=== PATIENT | female | born 1985 | race Caucasian/White ===

== ENCOUNTER 2016-12-23 07:41 | Emergency (ER) | payer BC ==
[2016-12-23 08:23] LABS: APPEARANCE,URINE CLEAR; BILIRUBIN,URINE NEGATIVE (NEGATIVE); GLUCOSE, URINE NEGATIVE (NEGATIVE); KETONES,URINE NEGATIVE (NEGATIVE); LEUKOCYTE ESTERASE,URINE NEGATIVE (NEGATIVE); NITRITE,URINE NEGATIVE (NEGATIVE); PROTEIN,URINE NEGATIVE (NEGATIVE); URINE SPECIFIC GRAVITY 1.002; UROBILINOGEN,URINE NEGATIVE mg/dL (<2.0)
[2016-12-23 09:04] LABS: ABSOLUTE EOSINOPHILS # (AUTO) 0.2 10^3/uL (0.0-0.6); ABSOLUTE LYMPHOCYTES (AUTO) 1.7 10^3/uL (0.5-4.7); ABSOLUTE MONOCYTES (AUTO) 0.3 10^3/uL (0.1-1.4); ABSOLUTE NEUT (AUTO) 3.5 10^3/uL (1.7-8.2); BASOPHILS % (AUTO) 0.6 % (0-2); EOSINOPHILS % (AUTO) 4.1 % (0-6); HEMATOCRIT 40.1 % (36.0-47.0); HGB HCT DIFFERENCE 1.9; LYMPHOCYTES % (AUTO) 29.2 % (13-45); MEAN CORPUSCULAR HEMOGLOBIN 30.8 pg (27.0-33.4); MEAN CORPUSCULAR HGB CONC 34.8 g/dL (32.0-36.0); MEAN CORPUSCULAR VOLUME 89 fl (80-97); MONOCYTES % (AUTO) 5.8 % (3-13); RED BLOOD COUNT 4.54 10^6/uL (3.72-5.28); RED CELL DISTRIBUTION WIDTH 12.9 % (11.5-14.0); SEGMENTED NEUTROPHILS % (AUTO) 60.3 % (42-78); WHITE BLOOD COUNT 5.8 10^3/uL (4.0-10.5)
[2016-12-23 09:25] LABS: ALANINE AMINOTRANSFERASE 30 U/L (9-52); ALBUMIN 4.5 g/dL (3.5-5.0); ALKALINE PHOSPHATASE 66 U/L (38-126); ANION GAP 14 (5-19); ASPARTATE AMINO TRANSFERASE 16 U/L (14-36); BILIRUBIN,DIRECT 0.3 mg/dL (0.0-0.4); BILIRUBIN,TOTAL 0.4 mg/dL (0.2-1.3); BLOOD UREA NITROGEN 9 mg/dL (7-20); CALCIUM 9.6 mg/dL (8.4-10.2); CARBON DIOXIDE 22 mmol/L (22-30); CHLORIDE 106 mmol/L (98-107); CREATINE KINASE 59 U/L (30-135); CREATININE RESULT 0.72 mg/dL (0.52-1.25); GLUCOSE 82 mg/dL (75-110); POTASSIUM 5.3 mmol/L (3.6-5.0); TOTAL PROTEIN 7.4 g/dL (6.3-8.2)
[2016-12-23] MEDS ORDERED: KETOROLAC TROMETHAMINE INJ/PF 30 MG/1 ML SDV IV ONE (10:28)
--- NOTE | 2016-12-23 10:33 | ER Document Report ---
ED General - General Chief Complaint: Urinary Frequency Stated Complaint: BILATERAL LEG PAIN Time Seen by Provider: 12/23/16 08:02 TRAVEL OUTSIDE OF THE [place] IN LAST 30 DAYS: No - HPI Notes: 31-year-old female presents with back and leg pain as well as dysuria. She was seen 5 days ago placed on Cipro for urinary type symptoms. She still has some sensation of these are present but is now having diffuse lumbar pain radiating diffusely through all of her legs. There is no focal weakness numbness or tingling. No incontinence or retention. No leg weakness. Denies abdominal pain. No fever. Denies trauma. Pain worse with movement. Denies history of diabetes, IV drug abuse, cancer. - Related Data Allergies/Adverse Reactions: No Known Allergies Allergy (Verified 12/23/16 07:45) Past Medical History - Social History Smoking Status: Never Smoker Chew tobacco use (# tins/day): No Frequency of alcohol use: Occasional Drug Abuse: None Family History: DM, Hyperlipidemia, Hypertension, Thyroid Disfunction Patient has suicidal ideation: No Patient has homicidal ideation: No - Past Medical History Cardiac Medical History: Pulmonary Medical History: Reports: Hx Asthma Neurological Medical History: Renal/ Medical History: Denies: Hx Peritoneal Dialysis GI Medical History: Musculoskeltal Medical History: Infectious Medical History: Past Surgical History: Reports: Hx Adenoidectomy, Hx Section, Hx Oral Surgery, Hx Tonsillectomy, Hx Tubal Ligation - Immunizations Immunizations up to date: Yes Hx Diphtheria, Pertussis, Tetanus Vaccination: Yes Review of Systems - Review of Systems -: Yes All other systems reviewed and negative Physical Exam - Vital signs Vitals: Temp Pulse Resp BP Pulse Ox 98.3 F 89 18 123/86 H 100 12/23/16 07:45 12/23/16 07:45 12/23/16 07:45 12/23/16 07:45 12/23/16 07:45 - Notes Notes: GENERAL: VS as per nursing doc. Well-appearing, well-nourished and in no acute distress. HEAD: Atraumatic, normocephalic. EYES: Pupils equal round and reactive to light, extraocular movements intact, sclera anicteric, no conjunctival injection or discharge. ENT: Nares patent, oropharynx clear without exudates, moist mucous membranes. NECK: Normal range of motion, supple without lymphadenopathy. LUNGS: Breath sounds clear to auscultation bilaterally and equal. No wheezes rales or rhonchi. HEART: Regular rate and rhythm without murmurs. ABDOMEN: Soft, non-tender, normoactive bowel sounds. No guarding, no rebound. No masses appreciated. No [place] sign. BACK: No CVA tenderness. EXTREMITIES: Normal range of motion, no calf tenderness, no edema. NEUROLOGICAL: Cranial nerves grossly intact. Normal speech. 5/5 lower extremity strength. Normal sensation. No saddle anesthesia. 1+ patellar deep tendon reflexes. Babinski downgoing PSYCH: Normal mood, normal affect. SKIN: Warm, dry, normal turgor, no lesions noted. Course - Re-evaluation Re-evalutation: 12/23/16 10:51 Patient is improved overall. This seems to be largely musculoskeletal. We will stop the Cipro after a discussion with potential side effects of this. We will await the urine culture which will likely be negative. She is not having any vaginal discharge. She has no signs of cauda equina at this time. She understands close follow-up and has a follow-up with urology scheduled but not till next month. As well, she understands warning signs and will return for any incontinence, retention or other worrisome signs. - Vital Signs Vital signs: Temp Pulse Resp BP Pulse Ox 98.4 F 85 16 121/79 98 12/23/16 10:39 12/23/16 10:39 12/23/16 07:45 12/23/16 10:39 12/23/16 10:39 - Laboratory Result Diagrams: 12/23/16 08:50 12/23/16 08:50 Laboratory results interpreted by me: 12/23/16 08:50 Potassium 5.3 H Discharge - Discharge Clinical Impression: Back pain, Dysuria Condition: Good Disposition: HOME, SELF-CARE Additional Instructions: Return for worsening or concern. Push non-caffeinated fluids. Start initially with ibuprofen or Aleve for discomfort. Prescriptions: Hydrocodone/Acetaminophen [[place] 5-325 mg Tablet] 1 tab PO Q4HP PRN #14 tablet PRN Reason: For Pain Phenazopyridine HCl [Pyridium 200 mg Tablet] 200 mg PO TID PRN #7 tablet PRN Reason:
[2016-12-23 10:42] VITALS: BP 121/79
== END 2016-12-23 10:42 | disposition home or self-care (01) ==
LOC: ER 07:41
DX: M54.9 Dorsalgia, unspecified (principal); R30.0 Dysuria; Z98.51 Tubal ligation status
CPT/HCPCS: 99283; 96374; 36415; 87086; 82550; 85025; 81025; 80053; 81001; J1885

== ENCOUNTER 2017-01-22 09:40 | Emergency (ER) | payer BC ==
[2017-01-22] MEDS ORDERED: NORMAL SALINE 1000 ML 1,000 ML IV ONE (10:15)
--- NOTE | 2017-01-22 10:16 | ER Document Report ---
ED General - General Chief Complaint: Urinary Problem Stated Complaint: PAINFUL URINATION Time Seen by Provider: 01/22/17 10:03 Notes: Patient is a 31-year-old female presents emergency department complaining of urinary tract infection. Patient states that she is a complicated UTI history over the past 9 months that she states she has been getting diagnosed with a UTI every 3-4 weeks. She states that she was initiated on Bactrim yesterday at her doctor's office but she woke up this morning with flank pain feels like her skin is hot since she started the Bactrim. She states she taken Bactrim once before and denies any previous allergic reaction. She states she is due to follow-up with the urologist for an ultrasound on Thursday regarding her recurrent UTIs. Otherwise denies any nausea, vomiting, diarrhea, constipation, abdominal pain. States she does not have any evidence of pyuria, hematuria, urinary retention. TRAVEL OUTSIDE OF THE [place] IN LAST 30 DAYS: No - Related Data Allergies/Adverse Reactions: hydromorphone [From Dilaudid] Allergy (Verified 01/22/17 09:53) Home Medications: Current Home Medications Cetirizine HCl [All Day Allergy] 10 mg PO DAILY 01/22/17 [History] Past Medical History - Social History Smoking Status: Current Every Day Smoker Family History: DM, Hyperlipidemia, Hypertension, Thyroid Disfunction - Past Medical History Cardiac Medical History: Pulmonary Medical History: Reports: Hx Asthma Neurological Medical History: Renal/ Medical History: Denies: Hx Peritoneal Dialysis GI Medical History: Musculoskeltal Medical History: Infectious Medical History: Past Surgical History: Reports: Hx Adenoidectomy, Hx Section, Hx Oral Surgery, Hx Tonsillectomy, Hx Tubal Ligation - Immunizations Immunizations up to date: Yes Hx Diphtheria, Pertussis, Tetanus Vaccination: Yes Review of Systems - Review of Systems Constitutional: No symptoms reported Gastrointestinal: See HPI Genitourinary: See HPI -: Yes All other systems reviewed and negative Physical Exam - Vital signs Vitals: Temp Pulse Resp BP Pulse Ox 98.5 F 105 H 18 127/85 H 95 01/22/17 09:52 01/22/17 09:52 01/22/17 09:52 01/22/17 09:52 01/22/17 09:52 - Notes Notes: PHYSICAL EXAM GENERAL: Alert, interacts well. HEAD: Normocephalic, atraumatic. LUNGS: Clear to auscultation bilaterally, no wheezes, rales, or rhonchi. No respiratory distress. HEART: Regular rate and rhythm. No murmurs, gallops, or rubs. ABDOMEN: Soft, nondistended, nontender. No guarding, rebound, or rigidity.. Bowel sounds present in all 4 quadrants. EXTREMITIES: Moves all 4 extremities spontaneously. No edema, radial and dorsalis pedis pulses 2/4 bilaterally. No cyanosis. Back: No evidence of CVA tenderness bilaterally. No evidence of spinous process apparent muscular tenderness. Patient able to walk without any difficulty. Gait stable NEUROLOGICAL: Alert and oriented x4. Normal speech. PSYCH: Normal affect, normal mood. SKIN: Warm, dry, normal turgor. No rashes or lesions noted. Course - Re-evaluation Re-evalutation: 01/22/17 12:12 patient is a 31-year-old female who is hemodynamically stable, no acute distress and afebrile.Vital signs stable without any evidence of tachycardia, hypotension, fever. CBC without evidence of leukocytosis or left shift. No evidence of acute renal failure on chemistry or evidence of electrolyte abnormalities. Urine with evidence of leuk esterase, white blood cells and mild hematuria. At this time patient is not concerning for acute pyelonephritis. Will continue patient's treatment with p.o. antibiotics but will switch her to Levaquin given patient states she feels like she is having allergic reaction on the Bactrim. Discussed with her to follow-up with urology as scheduled. - Vital Signs Vital signs: Temp Pulse Resp BP Pulse Ox 98.0 F 97 18 127/80 H 99 01/22/17 12:24 01/22/17 12:24 01/22/17 12:24 01/22/17 12:24 01/22/17 12:24 - Laboratory Result Diagrams: 01/22/17 10:35 01/22/17 10:35 Laboratory results interpreted by me: 01/22/17 01/22/17 09:54 10:35 Seg Neutrophils % 79.3 H Lymphocytes % 11.6 L Ur Leukocyte Esterase MODERATE H Urine Ascorbic Acid 40 H Discharge - Discharge Clinical Impression: UTI (urinary tract infection) Condition: Good Disposition: HOME, SELF-CARE Additional Instructions: URINARY TRACT INFECTION: Your evaluation indicates that you have a urinary tract infection. This is due to germs growing in the bladder. This is a common problem. This infection usually responds quickly to antibiotics. Your antibiotic should be taken exactly as prescribed. Drink plenty of fluids -- three to four quarts a day. Occasionally, a bladder anesthetic will be prescribed to help stop the feeling of urgency until the antibiotic has a chance to clear the infection. This may cause your urine to be dark orange. Certain urine infections require a culture. If the doctor obtained a culture, the results will be back in two days. You should call to see if a change in treatment is needed. A repeat urinalysis after you finish treatment is often recommended. The physician will let you know if further testing is required. Call the doctor if you develop fever, chills, flank pain, inability to urinate, or blood in the urine. ANTIBIOTIC THERAPY: You have been given an antibiotic prescription. It's important that you take all the medication, unless instructed otherwise by your physician. Failure to complete the entire course can result in relapse of your condition. Common side effects of antibiotics include nausea, intestinal cramping, or diarrhea. Women may develop vaginal yeast infections, and babies can get yeast (thrush) in the mouth following the use of antibiotics. Contact your physician if you develop significant side effects from this medication. Allergy to this antibiotic can result in hives, wheezing, faintness, or itching. If symptoms of allergy occur, stop the medication and call the doctor. LEVOFLOXACIN: You have been given an antibacterial agent, levofloxacin (Levaquin). This medicine is not related to the penicillins, sulfas, cephalosporins, or tetracyclines. It is often given to patients who are allergic to these drugs. It has been chosen for you either because other drugs are not appropriate, or because of the nature of your problem. Levaquin should not be taken with antacids, as these can decrease its effectiveness. It can be taken without regard to meals. LEVAQUIN SHOULD NOT BE TAKEN BY CHILDREN, NURSING WOMEN, OR WOMEN. Although Levaquin is usually well-tolerated, common side effects can include nausea and diarrhea. Contact your doctor if you experience any unusual symptoms while on this medication, such as joint pain or swelling, shortness of breath, wheezing, faintness, or hives. FOLLOW-UP CARE: If you have been referred to a physician for follow-up care, call the physician s office for an appointment as you were instructed or within the next two days. If you experience worsening or a significant change in your symptoms, notify the physician immediately or return to the Emergency Department at any time for re-evaluation. Prescriptions: Levofloxacin 750 mg PO DAILY #5 tablet Oxycodone HCl/Acetaminophen [Percocet 5-325 mg Tablet] 1 - 2 tab PO Q4H PRN #10 tablet PRN Reason: Forms: Return to Work Referrals: ANAT KASPER II, MD [CAPRI JIMENEZ] - Follow up as needed
[2017-01-22 10:51] LABS: ABSOLUTE EOSINOPHILS # (AUTO) 0.3 10^3/uL (0.0-0.6); ABSOLUTE LYMPHOCYTES (AUTO) 0.8 10^3/uL (0.5-4.7); ABSOLUTE MONOCYTES (AUTO) 0.3 10^3/uL (0.1-1.4); ABSOLUTE NEUT (AUTO) 5.2 10^3/uL (1.7-8.2); BASOPHILS % (AUTO) 0.4 % (0-2); EOSINOPHILS % (AUTO) 4.2 % (0-6); HEMATOCRIT 40.2 % (36.0-47.0); HGB HCT DIFFERENCE 1.8; LYMPHOCYTES % (AUTO) 11.6 % (13-45); MEAN CORPUSCULAR HEMOGLOBIN 30.1 pg (27.0-33.4); MEAN CORPUSCULAR HGB CONC 34.8 g/dL (32.0-36.0); MEAN CORPUSCULAR VOLUME 87 fl (80-97); MONOCYTES % (AUTO) 4.5 % (3-13); RED BLOOD COUNT 4.64 10^6/uL (3.72-5.28); SEGMENTED NEUTROPHILS % (AUTO) 79.3 % (42-78); WHITE BLOOD COUNT 6.5 10^3/uL (4.0-10.5)
[2017-01-22 11:02] LABS: APPEARANCE,URINE SLIGHTLY-CLOUDY; BILIRUBIN,URINE NEGATIVE (NEGATIVE); GLUCOSE, URINE NEGATIVE (NEGATIVE); KETONES,URINE NEGATIVE (NEGATIVE); LEUKOCYTE ESTERASE,URINE MODERATE (NEGATIVE); NITRITE,URINE NEGATIVE (NEGATIVE); PROTEIN,URINE NEGATIVE (NEGATIVE); URINE SPECIFIC GRAVITY 1.024; UROBILINOGEN,URINE NEGATIVE mg/dL (<2.0)
[2017-01-22 11:46] LABS: ANION GAP 13 (5-19); BLOOD UREA NITROGEN 12 mg/dL (7-20); CALCIUM 9.6 mg/dL (8.4-10.2); CARBON DIOXIDE 26 mmol/L (22-30); CHLORIDE 103 mmol/L (98-107); CREATININE RESULT 0.93 mg/dL (0.52-1.25); GLUCOSE 90 mg/dL (75-110); POTASSIUM 4.2 mmol/L (3.6-5.0)
[2017-01-22] MEDS ORDERED: LEVOFLOXACIN 750 MG TABLET PO ONE (12:11)
[2017-01-22 12:33] VITALS: BP 127/80
== END 2017-01-22 12:33 | disposition home or self-care (01) ==
LOC: ER 09:40
DX: N39.0 Urinary tract infection, site not specified (principal); F17.200 Nicotine dependence, unspecified, uncomplicated; Z87.440 Personal history of urinary (tract) infections; Z98.51 Tubal ligation status
CPT/HCPCS: 99283; 96360; 36415; 87086; 85025; 81025; 80048; 81001; J7030

== ENCOUNTER → 2017-02-16 | Outpatient (CLI) | payer BC, MEDICAID ==
--- NOTE | 2017-02-16 14:00 | RADIOLOGY REPORT (SQ) ---
EXAM DESCRIPTION: CT ABD/PELVIS COMBO COMPLETED DATE/TIME: 02/16/2017 12:52 pm REASON FOR STUDY: (R10.9) UNSPECIFIED ABDOMINAL PAIN (R31.29) OTHER MICROSCOPIC HEMATURIA FLA R10.9 UNSPECIFIED ABDOMINAL PAIN R31.29 OTHER MICROSCOPIC HEMATURIA COMPARISON: None. TECHNIQUE: CT scan of the abdomen and pelvis performed with and without intravenous contrast, and wi thout oral contrast. Contrasted imaging performed helical scanning technique and dynamic intravenous contrast injection. Images reviewed with lung, soft tissue, and bone windows. Reconstructed coronal a nd sagittal MPR images reviewed. Delayed images for evaluation of the urinary system also acquired. A ll images stored on PACS. All CT scanners at this facility use dose modulation, iterative reconstruction, and/or weight based d osing when appropriate to reduce radiation dose to as low as reasonably achievable (ALARA). [facility]: Dose Right [facility]: CareDose [facility]: Dose Right [facility]: Teradose 4D [facility]: Big Live CONTRAST TYPE AND DOSE: contrast/concentration: Isovue 370.00 mg/ml; Total Contrast Delivered: 95.0 ml; Total Saline Delivered: 71.1 ml RENAL FUNCTION: BUN 12 creatinine 0.9 RADIATION DOSE: Up-to-date CT equipment and radiation dose reduction techniques were employed. CTDIv ol: 14.0 - 15.9 mGy. DLP: 2254 mGy-cm. . LIMITATIONS: None. FINDINGS: NON-CONTRASTED IMAGIN mm stone lower pole right kidney. Bilateral nephrocalcinosis. POST-CONTRASTED IMAGING: LOWER CHEST: No significant findings. No nodules or infiltrates. LIVER: Normal size. No masses. No dilated ducts. SPLEEN: Normal size. No focal lesions. PANCREAS: No masses. No significant calcifications. No adjacent inflammation or peripancreatic fluid collections. Pancreatic duct not dilated. GALLBLADDER: No identified stones by CT criteria. No inflammatory changes to suggest cholecystitis. ADRENAL GLANDS: No significant masses or asymmetry. RIGHT KIDNEY AND URETER: No solid masses. No hydronephrosis or hydroureter. LEFT KIDNEY AND URETER: No solid masses. No hydronephrosis or hydroureter. AORTA AND VESSELS: No aneurysm. No dissection. Renal arteries, SMA, celiac without stenosis. RETROPERITONEUM: No retroperitoneal adenopathy, hemorrhage or masses. BOWEL AND PERITONEAL CAVITY: No masses or inflammatory changes. No free fluid or peritoneal masses. APPENDIX: Normal. PELVIS: No mass. No free fluid. Normal bladder. ABDOMINAL WALL: No masses. No hernias. BONES: No significant or acute findings. OTHER: No other significant finding. IMPRESSION: Medullary nephrocalcinosis. 4 mm nonobstructing stone right kidney. TECHNICAL DOCUMENTATION: JOB ID: [id number] Quality ID # [id number]: Final reports with documentation of one or more dose reduction techniques (e.g., Au tomated exposure control, adjustment of the mA and/or kV according to patient size, use of iterative reconstruction technique) 2010 [employer]- All Rights Reserved
== END ==
LOC: RAD 12:08
PROVIDERS: ATTEND Urology
DX: R31.29 Other microscopic hematuria (principal); R10.9 Unspecified abdominal pain
CPT/HCPCS: 74178

== ENCOUNTER → 2017-04-20 | Outpatient (CLI) | payer BC ==
[2017-04-20 12:27] LABS: HEMATOCRIT 41.4 % (36.0-47.0); HEMOGLOBIN 14.5 g/dL (12.0-15.5); MEAN CORPUSCULAR HEMOGLOBIN 30.3 pg (27.0-33.4); MEAN CORPUSCULAR VOLUME 87 fl (80-97); PLATELET COUNT 250 10^3/uL (150-450); RED BLOOD COUNT 4.78 10^6/uL (3.72-5.28); RED CELL DISTRIBUTION WIDTH 12.9 % (11.5-14.0); WHITE BLOOD COUNT 7.8 10^3/uL (4.0-10.5)
[2017-04-20 12:33] LABS: APPEARANCE,URINE CLEAR; BILIRUBIN,URINE NEGATIVE (NEGATIVE); COLOR,URINE STRAW; GLUCOSE, URINE NEGATIVE (NEGATIVE); KETONES,URINE NEGATIVE (NEGATIVE); LEUKOCYTE ESTERASE,URINE NEGATIVE (NEGATIVE); NITRITE,URINE NEGATIVE (NEGATIVE); PROTEIN,URINE NEGATIVE (NEGATIVE); URINE SPECIFIC GRAVITY 1.008; UROBILINOGEN,URINE NEGATIVE mg/dL (<2.0)
[2017-04-20 12:47] LABS: ALANINE AMINOTRANSFERASE 35 U/L (9-52); ALBUMIN 4.6 g/dL (3.5-5.0); ALKALINE PHOSPHATASE 89 U/L (38-126); ANION GAP 13 (5-19); ASPARTATE AMINO TRANSFERASE 23 U/L (14-36); BILIRUBIN,DIRECT 0.2 mg/dL (0.0-0.4); BILIRUBIN,TOTAL 0.7 mg/dL (0.2-1.3); BLOOD UREA NITROGEN 9 mg/dL (7-20); CARBON DIOXIDE 24 mmol/L (22-30); CHLORIDE 106 mmol/L (98-107); GLUCOSE 77 mg/dL (75-110); PHOSPHORUS 2.9 mg/dL (2.5-4.5); POTASSIUM 4.3 mmol/L (3.6-5.0); SODIUM 142.6 mmol/L (137-145); TOTAL PROTEIN 7.3 g/dL (6.3-8.2)
== END ==
LOC: OD 11:37
PROVIDERS: ATTEND Internal Medicine Nephrology
DX: E83.59 Other disorders of calcium metabolism (principal); N20.0 Calculus of kidney
CPT/HCPCS: 36415; 80053; 81001; 83970; 84100; 84550; 85027

== ENCOUNTER 2017-06-22 20:36 | Emergency (ER) | payer BC ==
--- NOTE | 2017-06-22 22:00 | RADIOLOGY REPORT (SQ) ---
EXAM DESCRIPTION: TIBIA FIBULA LEFT COMPLETED DATE/TIME: 06/22/2017 9:39 pm REASON FOR STUDY: fall left hip, knee, ankle pain COMPARISON: None. NUMBER OF VIEWS: Two views. TECHNIQUE: Two radiographic images acquired of the left tibia and fibula to include the knee and ank le in at least one projection. LIMITATIONS: None. FINDINGS: MINERALIZATION: Normal. BONES: No acute fracture or dislocation. No worrisome bone lesions. SOFT TISSUES: No obvious swelling or foreign body. OTHER: No other significant finding. IMPRESSION: NEGATIVE STUDY OF THE LEFT TIBIA AND FIBULA. NO RADIOGRAPHIC EVIDENCE OF ACUTE INJURY. TECHNICAL DOCUMENTATION: JOB ID: [id number] [employer]- All Rights Reserved Reading location - IP/workstation name: [email or web address]
--- NOTE | 2017-06-22 22:01 | RADIOLOGY REPORT (SQ) ---
EXAM DESCRIPTION: FEMUR LEFT COMPLETED DATE/TIME: 06/22/2017 9:39 pm REASON FOR STUDY: fall left hip, knee, ankle pain COMPARISON: None. NUMBER OF VIEWS: Two views. TECHNIQUE: Two radiographic images acquired of the left femur to include hip and knee in at least on e projection. LIMITATIONS: None. FINDINGS: MINERALIZATION: Normal. BONES: No acute fracture. No worrisome bone lesions. SOFT TISSUES: No obvious swelling or foreign body. OTHER: No other significant finding. IMPRESSION: NEGATIVE STUDY OF THE LEFT FEMUR. NO RADIOGRAPHIC EVIDENCE OF ACUTE INJURY. TECHNICAL DOCUMENTATION: JOB ID: [id number] [employer]- All Rights Reserved Reading location - IP/workstation name: [email or web address]
[2017-06-22] MEDS ORDERED: KETOROLAC TROMETHAMINE INJ/PF 30 MG/1 ML SDV IM ONE (22:52)
--- NOTE | 2017-06-22 22:55 | ER Document Report ---
HPI - HPI Patient complains to provider of: fall Pain Level: 5 Context: Patient is a 32-year-old female presents emergency department after a fall. Patient states that she slipped down some stairs hurting her left leg. She denies any fall on her bottom, head injury. States that her pain is along the lateral side of her left leg without any associated numbness, tingling. Has pain with movement but denies any weakness. Denies any urinary/incontinence, saddle anesthesia. - REPRODUCTIVE Reproductive: DENIES: : Past Medical History - Social History Smoking Status: Never Smoker Family History: DM, Hyperlipidemia, Hypertension, Thyroid Disfunction - Past Medical History Cardiac Medical History: Pulmonary Medical History: Reports: Hx Asthma Neurological Medical History: Renal/ Medical History: Denies: Hx Peritoneal Dialysis GI Medical History: Musculoskeltal Medical History: Infectious Medical History: Past Surgical History: Reports: Hx Adenoidectomy, Hx Section, Hx Oral Surgery, Hx Tonsillectomy, Hx Tubal Ligation - Immunizations Immunizations up to date: Yes Hx Diphtheria, Pertussis, Tetanus Vaccination: Yes Vertical Provider Document - CONSTITUTIONAL Agree With Documented VS: Yes Notes: PHYSICAL EXAM GENERAL: Alert, interacts well. HEAD: Normocephalic, atraumatic. EXTREMITIES: Moves all 4 extremities spontaneously. Left lateral leg tender to palpation along the lateral thigh musculature without any focal deformities. Full range of motion of the left hip and left knee. No edema,dorsalis pedis pulses 2/4 bilaterally. No cyanosis. NEUROLOGICAL: Alert and oriented x4. Normal speech. Sensation intact bilaterally. PSYCH: Normal affect, normal mood. SKIN: Warm, dry, normal turgor. No rashes or lesions noted. Subjective tenderness without any focal - INFECTION CONTROL TRAVEL OUTSIDE OF THE [place] IN LAST 30 DAYS: No - RESPIRATORY O2 Sat by Pulse Oximetry: 100 Course - Re-evaluation Re-evalutation: 06/22/17 22:53 Patient is a 32-year-old female is hemodynamically stable, no acute distress and afebrile. No evidence of a septic joint, gout flare, dislocation, or fracture on exam and imaging. Vitals wnl. At this time, I do not see an indication for labs or further imaging. Will discharge with conservative measures, return precautions, and follow-up recommendations. - Vital Signs Vital signs: Temp Pulse Resp BP Pulse Ox 98.8 F 83 18 132/90 H 100 06/22/17 20:51 06/22/17 20:51 06/22/17 20:51 06/22/17 20:51 06/22/17 20:51 - Diagnostic Test Radiology reviewed: Image reviewed, Reports reviewed Discharge - Discharge Clinical Impression: Fall Qualifiers: Encounter type: initial encounter Qualified Code(s): W19.XXXA - Unspecified fall, initial encounter Condition: Good Disposition: HOME, SELF-CARE Instructions: Contusion ([facility]), Use of Crutches ([facility]), Use of [id number] Ibuprofen ([facility]) Prescriptions: Cyclobenzaprine HCl [Flexeril 10 mg Tablet] 10 mg PO TIDP PRN #15 tab PRN Reason: Forms: Return to Work Referrals: LIZBETH ORTIZ MD [ACTIVE STAFF] - Follow up as needed
[2017-06-22 23:26] VITALS: BP 120/76
== END 2017-06-22 23:20 | disposition home or self-care (01) ==
LOC: ER 20:36
DX: M79.652 Pain in left thigh (principal); M79.605 Pain in left leg; W10.9XXA Fall (on) (from) unspecified stairs and steps, initial encounter; J45.909 Unspecified asthma, uncomplicated
CPT/HCPCS: 99283; 96372; 73552; 73590; J1885

== ENCOUNTER → 2019-08-24 | Outpatient (CLI) | payer BC ==
[2019-08-24 12:05] VITALS: BP 134/74
--- NOTE | 2019-08-24 12:05 | ER RDC ASSESSMENT REPORT ---
Intake - In the Last 14 days Have you traveled outside [place]?: No Have you been in close contact with someone CONFIRMED: No Worked in Healthcare?: No - Symptoms Subjective Fever([place] feverish): No Chills: No Muscule Aches: Yes Runny Nose: Yes Sore Throat: Yes Cough (New or worsening chronic cough): Yes Shortness of breath: Yes Nausea or Vomiting: No Headache: Yes Abdominal Pain: No Diarrhea(3 or more loose stools in last 24 hours): Yes - Do you have any of the following Chronic lung disease: Asthma or emphysema or COPD: Yes Chronic Lung Disease Comment: History of asthma. Being treated by PCP using inhalers Cystic Fibrosis: No Diabetes: No High Blood Pressure: No Cardiovascular Disease: No Chronic Kidney Disease: No Chronic Liver Disease: No Chronic blood disorder like Sickle Cell Disease: No Weak immune system due to disease or medication: No Neurologic condition that limits movement: No Developmental delay - Moderate to Severe: No Recent (within past 2 weeks) or current : No Morbid Obesity (>100 pounds over ideal weight): No Obesity Comment: height 5 feet 1 inches weight 220 pounds - Objective Temperature: 99.6 F Pulse Rate: 95 Respiratory Rate: 20 Blood Pressure: 134/74 O2 Sat by Pulse Oximetry: 98 Objective: Given above, testing performed: If Testing Performed: Test Specimen Type Sent to General - General Information source: Patient Notes: Patient started feeling sick last week around August 16. Usually has asthma illness every year around this time. Sees Helga COLUNGA at [facility] in [place]. Has been using inhalers. PCP suggested COVID testing in addition patient's current treatment. PCP put patient on antibiotic starting today - Related Data Allergies/Adverse Reactions: hydromorphone [From Dilaudid] Allergy (Verified 01/22/17 09:53) Past Medical History - General Information source: Patient - quit smoking 12 years ago - Social History Smoking Status: Former Smoker Family History: DM, Hyperlipidemia, Hypertension, Thyroid Disfunction - Past Medical History Cardiac Medical History: Pulmonary Medical History: Reports: Hx Asthma Neurological Medical History: Renal/ Medical History: Denies: Hx Peritoneal Dialysis GI Medical History: Musculoskeletal Medical History: Infectious Medical History: Past Surgical History: Reports: Hx Adenoidectomy, Hx Section, Hx Oral Surgery, Hx Tonsillectomy, Hx Tubal Ligation Physical Exam - General General appearance: Appears well, Alert In distress: None Notes: PHYSICAL EXAMINATION: GENERAL: Well-appearing and in no acute distress. HEAD: Atraumatic, normocephalic. EYES: sclera anicteric, conjunctiva are normal. ENT: nares patent. Moist mucous membranes. NECK: Normal range of motion, supple without lymphadenopathy LUNGS: CTAB and equal. No wheezes rales or rhonchi. Resp even and unlabored. Lung sounds clear. Noted dry cough with deep breath. HEART: Regular rate and rhythm without murmurs ABDOMEN: Soft, nontender, normal bowel sounds, no guarding. EXTREMITIES: No cyanosis. NEUROLOGICAL: Normal speech. PSYCH: Normal mood, normal affect. SKIN: Warm, Dry, normal turgor, Diagnostic Results Laboratory Results: Informed of negative rapid strep and negative. Pending strep culture pending COVID testing results. Patient provided instructions regarding COVID to include: As a person under investigation for Covid 19, the [place] department of Health and Human Services, division of public health advises you to adhere to the following guidance until your test results are reported to you. If your test result is positive, you will receive additional information from your provider and your local health department at that time. Remain at home until you are cleared by the health provider or public health authorities. Keep a log of visitors to your home, notify any visitors to your home of your isolation status. If you plan to move to a new address or leave the [facility], notify the local health department in your County. Call your doctor or seek care if you have an urgent medical need. Before seeking medical care, call ahead to get instructions from the provider before arriving at the medical office clinic or hospital. Notify them that you are being tested for the virus that causes Covid 19 so that arrangements can be made, as necessary, to prevent transmission to others in the healthcare setting. Next, notify the local health department in your county. If a medical emergency arises and you need to call 911, inform the first responders that you are being tested for the virus that causes Covid 19. Next, notify the local health department in your county. Patient Education/Counseling Counseling/Education: Patient presents with upper respiratory symptoms worrisome for possible Covid 19. Patient does not have emergency worring symptoms such as difficulty breathing, shortness of breath, chest pain, pressure, confusion or cyanosis. Patient appears suitable for discharge. Patient instructed to follow up with PCP Helga Kent at [facility] in [facility]. To ED for persistent or worsening symptoms. Patient's vital signs are stable and patient is nontoxic in appearance. Good return precautions have been discussed with patient, patient verbalized understanding and is agreeable with discharge plan of care at this time. RDC Discharge - Discharge Clinical Impression: COVID - 19 SCREENING Upper respiratory infection Qualifiers: URI type: unspecified URI Qualified Code(s): J06.9 - Acute upper respiratory infection, unspecified Condition: Stable Disposition: Home; Selfcare
[2019-08-24 13:11] LABS: A TYPE INFLUENZA AG NEGATIVE (NEGATIVE); B INFLUENZA AG NEGATIVE (NEGATIVE)
== END ==
LOC: RDC 11:16
PROVIDERS: ATTEND Nurse Practitioner Family
DX: Z20.828 Contact with and (suspected) exposure to other viral communicable diseases (principal); J06.9 Acute upper respiratory infection, unspecified; R05 Cough; J02.9 Acute pharyngitis, unspecified; R06.02 Shortness of breath; M79.10 Myalgia, unspecified site; R09.89 Other specified symptoms and signs involving the circulatory and respiratory systems; R51 Headache; R19.7 Diarrhea, unspecified; J45.909 Unspecified asthma, uncomplicated; Z88.6 Allergy status to analgesic agent; Z87.891 Personal history of nicotine dependence
CPT/HCPCS: 87070; 87635; 87804; 87880; 99211